=== PATIENT | male | born 1995 | race Caucasian/White ===

== ENCOUNTER 2019-12-06 13:47 | Emergency (ER) | payer SELFPAY ==
[~2019-12-06] VITALS: Ht 177.8 cm; Wt 81.6 kg
[2019-12-06] MEDS ORDERED: CEPHALEXIN500 M1 PO (15:43)
== END 2019-12-06 16:35 | disposition home or self-care (01) ==
LOC: ED 13:47
DX: S61.212A Laceration without foreign body of right middle finger without damage to nail, initial encounter (principal); W25.XXXA Contact with sharp glass, initial encounter; Y93.E9 Activity, other interior property and clothing maintenance; Y92.098 Other place in other non-institutional residence as the place of occurrence of the external cause; Y99.8 Other external cause status

== ENCOUNTER 2020-11-29 11:21 | Emergency (ER) | payer SELFPAY ==
[~2020-11-29 11:21] MED LIST: CEPHALEXIN500 M1 PO
[2020-11-29 13:05] LABS: BASO % 0.7 % (0.0-1.0); EOS # 0.1 10*3/uL (0.0-0.4); EOS % 1.5 % (1.0-4.0); HEMATOCRIT 44.2 % (42.0-52.0); LYMPH # 1.7 10*3/uL (1.3-4.4); LYMPH % 36.2 % (27.0-41.0); MEAN CELL VOLUME 86.3 fl (80.0-94.0); MEAN CORPUSCULAR HGB 29.5 pg (27.0-31.0); MEAN CORPUSCULAR HGB CONC 34.2 g/dl (33.0-37.0); MEAN PLATELET VOLUME 10.3 fl (9.6-12.3); MONO # 0.3 10*3/uL (0.1-1.0); MONO % 6.3 % (3.0-9.0); NEUT # 2.5 10*3/uL (2.3-7.9); NEUT % 55.1 % (47.0-73.0); PLATELET COUNT AUTOMATED 152 10*3/uL (130-400); RED BLOOD COUNT 5.12 10*6/uL (4.50-5.90); RED CELL DISTRI WIDTH 11.3 % (0-14.5); WHITE BLOOD COUNT 4.6 10*3/uL (4.8-10.8)
[2020-11-29 13:26] LABS: ALBUMIN 3.8 gm/dl (3.1-4.5); ALKALINE PHOSPHATASE 83 U/L (45-117); BUN 20 mg/dl (7-24); CHLORIDE 108 mmol/L (98-107); POTASSIUM 4.5 mmol/L (3.5-5.1); SGOT/AST 25 IU/L (3-35); SGPT/ALT 59 U/L (12-78); SODIUM 137 mmol/L (136-145); TOTAL PROTEIN 8.1 gm/dL (6.4-8.2)
[2020-11-29] MEDS ORDERED: DOXYCYCLINE100 M3 PO (14:47)
[2020-11-29] MEDS ORDERED: PERCOCET 5-3251 EACH PO (14:48)
== END 2020-11-29 16:05 | disposition home or self-care (01) ==
LOC: ED 11:21
PROVIDERS: Nurse Practitioner Family
DX: L02.512 Cutaneous abscess of left hand (principal); Z79.899 Other long term (current) drug therapy